=== PATIENT | female | born 1990 | race Caucasian/White ===

== ENCOUNTER → 2019-05-12 | Outpatient (CLI) | payer OTHER ==
[~2019-05-12] MED LIST: ACHYD1T PO; DCS100C PO; DOCU100C37 PO; HOLD METFORMIN - RECEIVED CONTRAST 20 ML VIAL IV SCH; IBP800T PO; IBUP-1780 PO; IOHEXOL 350 MG/ML 100 ML (OMNIPAQUE 350) VIAL IV ONE; LEVO175T5 PO; NS 100 ML (IVPB) BAG IV ONE; OXYC-465 PO; PREN-115 PO
--- NOTE | 2019-05-12 08:22 | Diagnostic Imaging Report ---
PROCEDURE: CT chest with and without contrast. TECHNIQUE: Multiple contiguous axial images were obtained through the chest before and after administration of intravenous contrast. Auto Exposure Controls were utilized during the CT exam to meet ALARA standards for radiation dose reduction. DATE: May 12, 2019. COMPARISON: None. INDICATION: 28-year-old female, shortness of breath, cough. Hemoptysis. FINDINGS: There is very mild dependent atelectasis in the right and left lower lobes. There is no identified pulmonary nodule There is no lung mass. There is no additional focal airspace consolidation. The central airways are patent. There is no pneumothorax. There is no pleural effusion. 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 The heart is not enlarged. There is no identified pericardial effusion. There is nondiagnostic assessment for pulmonary embolus given timing of contrast bolus. There is somewhat prominent soft tissue attenuation in the anterior mediastinum which appears predominantly triangular. This potentially may reflect prominent thymus. There is no identified abnormally enlarged mediastinal, hilar, or axillary lymph node which meets CT size criteria for adenopathy. The imaged portions of the upper abdomen are unremarkable in appearance. There are nondisplaced subacute to chronic appearing deformities of the anterior aspects of the right sixth, seventh, and eighth ribs. IMPRESSION: CT CHEST. 1. No identified acute cardiopulmonary abnormality. 2. Nondisplaced subacute to chronic appearing fractures of the right anterior sixth, seventh, and eighth ribs. Dictated by: Dictated on workstation # [id number]
== END ==
LOC: RAD 07:32
PROVIDERS: ATTEND Surgery
DX: R06.02 Shortness of breath (principal); R04.2 Hemoptysis; R05 Cough
CPT/HCPCS: 71270

== ENCOUNTER 2019-05-30 13:03 | Emergency (ER) | payer OTHER ==
[~2019-05-30] VITALS: Ht 165 cm; Wt 60.7 kg
[~2019-05-30 13:03] MED LIST changes: -HOLD METFORMIN - RECEIVED CONTRAST 20 ML VIAL IV SCH; -IOHEXOL 350 MG/ML 100 ML (OMNIPAQUE 350) VIAL IV ONE; -NS 100 ML (IVPB) BAG IV ONE
--- NOTE | 2019-05-30 13:44 | ED Respiratory ---
General Chief Complaint: Cough/Cold/Flu Symptoms Stated Complaint: COUGH Nursing Triage Note: ARRIVED VIA AMB TO TRIAGE. STATES SHE HAS HAD A COUGH X5 MONTHS. HAS BEEN TO HER PRIMARY CARE MULTIPLE TIMES AND [facility] AND TREATED WITH MULTIPLE MEDICATIONS BUT NOT BETTER. STATES SHE WANTS ANSWERS AND ADMISSION IF SHE NEEDS IT. Source: patient Exam Limitations: no limitations (RADHA GASTELUM MEDICAL STUDENT) History of Present Illness Date Seen by Provider: May 30, 2019 Time Seen by Provider: 13:20 Initial Comments Pt is a 29 yo female who ambulates to the ED for complaints of a chronic cough that started 5 months ago. It has worsened over the last week due to what she believes is either allergies or a cold. She also complains of nasal congestion and an inability to sleep because of the cough. States she only slept 45 minutes last night. She gets a MARX from excessive coughing and sometimes experiences post-tussive emesis. She is primarily here for help with uncovering the etiology of the cough. She has been diagnosed with pneumonia and received antibiotics several times. She received a CT chest here on 05/12/19 which was negative except for some subacute to chronic appearing fractures of the right anterior sixth, seventh, and eighth ribs. She also received a referral to Dr. Cavazos to investigate reflux as the possible cause, but pt states he did not perform an EGD because he did not believe her cough was consistent with what would be expected if it were caused by reflux. She has been told a next step could potentially be workup by a associate engineer, but does not currently have a referral. She states she is upset enough with the length of this cough and lack of answers that she would be okay with being admitted to the hospital. Timing/Duration: constant, other (5 months) Severity: moderate Prior Episodes/Possible Cause: chronic episodes, unknown cause Modifying Factors: Improves With Albuterol Nebulizer Associated Symptoms: No dizziness, No fever/chills; headache, nasal congestion; No sore throat, No wheezing (RADHA GASTELUM MEDICAL STUDENT) Timing/Duration: getting worse, other (5 months) Severity: moderate Associated Symptoms: cough, nasal congestion; No sore throat (JESSIKA OWENS MD) Allergies and Home Medications Allergies Coded Allergies: No Known Drug Allergies (Unverified , 10/02/12) Home Medications Docusate Sodium 100 Mg Capsule, 100 MG PO BID Prescribed by: ROJAS HAMEED on 04/15/15758 Ibuprofen 800 Mg Tablet, 800 MG PO Q6H Prescribed by: ROJAS HAMEED on 04/15/15758 Levothyroxine Sodium 175 Mcg Tablet, 175 MCG PO DAILY, (Reported) Oxycodone HCl/Acetaminophen 1 Each Tablet, 1-2 TAB PO Q4H PRN for PAIN Prescribed by: ROJAS HAMEED on 04/15/15758 Vit #108/Iron/Fa 1 Each Tablet, 1 EACH PO DAILY, (Reported) Patient Home Medication List Home Medication List Reviewed: Yes (RADHA GASTELUM STUDENT) Home Medication List Reviewed: Yes (JESSIKA OWENS MD) Review of Systems Review of Systems Constitutional: No chills, No fever EENTM: nose congestion; No ear pain, No throat swelling Respiratory: cough, phlegm Cardiovascular: No chest pain, No palpitations Gastrointestinal: No abdominal pain, No diarrhea, No nausea; vomiting (post- tussive) Genitourinary: no symptoms reported : No Musculoskeletal: no symptoms reported Skin: no symptoms reported Psychiatric/Neurological: No Symptoms Reported Hematologic/Lymphatic: No Symptoms Reported Immunological/Allergic: no symptoms reported (RADHA GASTELUM) EENTM: nose congestion Cardiovascular: No edema; other (persistent tachycardia) (JESSIKA OWENS MD) All Other Systems Reviewed Negative Unless Noted: Yes (JESSIKA OWENS MD) Past Izttzyk-Kqeqqd-Qssjek Hx Past Med/Social Hx: Reviewed Nursing Past Med/Soc Hx (RADHA GASTELUM) Patient Social History Alcohol Use: Denies Use Recreational Drug Use: No Smoking Status: Never a Smoker Recent Foreign Travel: No Contact w/Someone Who Travel: No Recent Infectious Disease Expo: No Physical Abuse: No Sexual Abuse: No (RADHA GASTELUM STUDENT) Immunizations Up To Date Tetanus Booster (TDap): Unknown PED Vaccines UTD: Yes (RADHA GASTELUM) Past Medical History Surgeries: Yes (wisdom teeth extraction) Thyroidectomy Respiratory: No Cardiac: No Neurological: No Reproductive Disorders: No Female Reproductive Disorders: Denies Sexually Transmitted Disease: No HIV/AIDS: No Gastrointestinal: No Musculoskeletal: No Endocrine: Yes (graves disease, removed in 2013) Hypothyroidsim Cancer: No Psychosocial: No Integumentary: No Blood Disorders: No (RADHA GASTELUM MEDICAL STUDENT) Family Medical History Reviewed Nursing Family Hx (RADHA GASTELUM STUDENT) Reviewed Nursing Family Hx (JESSIKA OWENS MD) Physical Exam Vital Signs - First Documented 05/30/19 13:04 Temp 36.7 Pulse 140 Resp 16 B/P (MAP) 144/85 (104) Pulse Ox 98 O2 Delivery Room Air (JESSIKA OWENS MD) Capillary Refill : Less Than 3 Seconds (RADHA GASTELUM MEDICAL STUDENT) Height: 5'5.00" Weight: 138lbs. oz. 62.948910td; 22.00 BMI Method: General Appearance: no apparent distress HEENT: PERRL/EOMI, TMs normal, pharynx normal Neck: non-tender, full range of motion, supple, normal inspection Respiratory: chest non-tender, no respiratory distress, no accessory muscle use, rhonchi (all lung perez) Cardiovascular: no edema, no gallop, no murmur, tachycardia (140s) Gastrointestinal: normal bowel sounds, non tender, soft Extremities: normal range of motion, non-tender, no pedal edema, no calf tenderness Neurologic/Psychiatric: alert, oriented x 3 Skin: normal color, warm/dry Lymphatic: no adenopathy (RADHA GASTELUM MEDICAL STUDENT) Neck: full range of motion, supple, lymphadenopathy (R), lymphadenopathy (L) Respiratory: lungs clear, no respiratory distress Cardiovascular: no murmur, tachycardia (140s) Gastrointestinal: non tender, soft Neurologic/Psychiatric: alert, oriented x 3 Skin: normal color, warm/dry (JESSIKA OWENS MD) Progress/Results/Core Measures Suspected Sepsis Recent Fever Within 48 Hours: No Infection Criteria Present: Suspected New Infection New/Unexplained Altered Menta: No Sepsis Screen: No Definite Risk SIRS Temperature: Pulse: 140 Respiratory Rate: 16 Blood Pressure 144 /85 Mean: 104 (RADHA GASTELUM MEDICAL STUDENT) Results/Orders Lab Results Laboratory Tests Test 05/30/19 14:36 Range/Units White Blood Count 9.2 4.3-11.0 10^3/uL Red Blood Count 5.35 4.35-5.85 10^6/uL Hemoglobin 14.2 11.5-16.0 G/DL Hematocrit 42 35-52 % Mean Corpuscular Volume 78 L 80-99 FL Mean Corpuscular Hemoglobin 27 25-34 PG Mean Corpuscular Hemoglobin Concent 34 32-36 G/DL Red Cell Distribution Width 13.1 10.0-14.5 % Platelet Count 241 130-400 10^3/uL Mean Platelet Volume 9.1 7.4-10.4 FL Neutrophils (%) (Auto) 78 H 42-75 % Lymphocytes (%) (Auto) 6 L 12-44 % Monocytes (%) (Auto) 7 0-12 % Eosinophils (%) (Auto) 8 0-10 % Basophils (%) (Auto) 0 0-10 % Neutrophils # (Auto) 7.3 1.8-7.8 X 10^3 Lymphocytes # (Auto) 0.6 L 1.0-4.0 X 10^3 Monocytes # (Auto) 0.7 0.0-1.0 X 10^3 Eosinophils # (Auto) 0.7 H 0.0-0.3 10^3/uL Basophils # (Auto) 0.0 0.0-0.1 10^3/uL Neutrophils % (Manual) 80 % Lymphocytes % (Manual) 5 % Monocytes % (Manual) 5 % Eosinophils % (Manual) 10 % Clumped Platelets OCCASIONAL Microcytosis MODERATE Sodium Level 139 135-145 MMOL/L Potassium Level 3.5 L 3.6-5.0 MMOL/L Chloride Level 105 98-107 MMOL/L Carbon Dioxide Level 22 21-32 MMOL/L Anion Gap 12 5-14 MMOL/L Blood Urea Nitrogen 5 L 7-18 MG/DL Creatinine 0.72 0.60-1.30 MG/DL Estimat Glomerular Filtration Rate > 60 BUN/Creatinine Ratio 7 Glucose Level 92 70-105 MG/DL Calcium Level 8.8 8.5-10.1 MG/DL Corrected Calcium 8.7 8.5-10.1 MG/DL Magnesium Level 1.6 1.6-2.4 MG/DL Total Bilirubin 0.4 0.1-1.0 MG/DL Aspartate Amino Transf (AST/SGOT) 12 5-34 U/L Alanine Aminotransferase (ALT/SGPT) 15 0-55 U/L Alkaline Phosphatase 108 40-136 U/L C-Reactive Protein High Sensitivity 0.17 0.00-0.50 MG/DL Total Protein 7.3 6.4-8.2 GM/DL Albumin 4.1 3.2-4.5 GM/DL Thyroid Stimulating Hormone (TSH) 0.00 L 0.35-4.94 UIU/ML Free Thyroxine 1.63 H 0.70-1.48 NG/DL (JESSIKA OWENS MD) Micro Results Microbiology 05/30/19 Influenza Types A,B Antigen (ROXI) - Final, Complete (JESSIKA OWENS MD) My Orders Orders - JESSIKA OWENS MD Cbc With Automated Diff (05/30/19 14:34) Comprehensive Metabolic Panel (05/30/19 14:34) Hs C Reactive Protein (05/30/19 14:34) Magnesium (05/30/19 14:34) Thyroid Stimulating Hormone (05/30/19 14:34) Influenza A And B Antigens (05/30/19 14:34) Ed Iv/Invasive Line Start (05/30/19 14:34) Lactated Ringers (Lr 1000 Ml Iv Solution (05/30/19 14:34) Free T4 (Free Thyroxine) (05/30/19 14:34) Manual Differential (05/30/19 14:36) Dexamethasone Injection (Decadron Inject (05/30/19 15:30) Triiodothryonine T3 Free (05/30/19 15:55) Metoprolol Tartrate (Ir) Tab (Lopressor (05/30/19 16:15) (JESSIKA OWENS MD) Medications Given in ED Current Medications Medications Dose Ordered Sig/Guido Route Start Time Stop Time Status Last Admin Dose Admin Dexamethasone Sodium Phosphate 10 mg ONCE ONCE IV 05/30/19 15:30 05/30/19 15:31 DC 05/30/19 15:35 10 MG Lactated Ringer's 1,000 ml @ 0 mls/hr Q0M ONCE IV 05/30/19 14:34 05/30/19 14:37 DC 05/30/19 14:50 0 MLS/HR Metoprolol Tartrate 25 mg ONCE ONCE PO 05/30/19 16:15 05/30/19 16:16 DC 05/30/19 16:16 25 MG (JESSIKA OWENS MD) Vital Signs/I&O 05/30/19 05/30/19 13:04 14:36 Temp 36.7 36.7 Pulse 140 Resp 16 B/P (MAP) 144/85 (104) Pulse Ox 98 O2 Delivery Room Air (JESSIKA OWENS MD) Vital Signs/I&O Capillary Refill : Less Than 3 Seconds (RADHA GASTELUM MEDICAL STUDENT) Blood Pressure Mean: 104 Progress Note : Progress Note I have seen and evaluated the patient and agree with above except as indicated. I directed the plan of care. Patient is here with chronic cough over the last 5 months as well as tachycardia. These symptoms of runny nose this week. Denies current fever. She has been seen by her provider's office for this and they are currently in the process of workup for endocrinology due to hyperthyroidism status post complete thyroidectomy 5 years ago. Patient is not currently on thyroid replacement. She does take Singulair as well as control. She states that her heart rate is was quite high. Denies other symptoms. Evaluation as above. Plan for IV, labs, LR 1 L bolus and records review. CT scan from 05/17/19 reviewed. 1615: Findings noted and reviewed. I did discuss the case with Dr. Art. She will see her in office next week for recheck. She does have thyroid scan set up for Sunday. Patient has history with Dr. Boogie and will make appointment with him. 1630: I did discuss the case with Dr. Mcclendon, pulmonology. He will see the patient in the next one to 2 weeks for recheck as well and initial evaluation. We did initiate metoprolol 25 mg by mouth and I will continue that twice a day with [address] Art will reevaluate and adjust prescription as necessary. Discharged home with return precautions. Patient verbalize understanding of instructions and agreement with plan. (JESSIKA OWENS MD) Departure Impression Primary Impression: Hyperthyroidism Additional Impressions: Chronic cough Viral upper respiratory infection Disposition: HOME, SELF-CARE Condition: Stable Departure-Patient Inst. Decision time for Depature: 16:37 (JESSIKA OWENS MD) Referrals: LIBBY ART MD (PCP) Primary Care Physician LEO BECERRIL (Family) Primary Care Physician YARI MCCLENDON DO Patient Instructions: Hyperthyroidism (Overactive Thyroid) (DC), Cough, Adult (DC), Viral Upper Respiratory Infection, Adult (DC) Add. Discharge Instructions: All discharge instructions reviewed with patient and/or family. Voiced understanding. Drink plenty of fluids. Take medications as directed. Follow-up with Dr. Art on 06/04/19 at 3 PM. You will get a call that says to be there at 245 but 3 PM is okay. Call Dr. Mcclendon's office on Sunday morning for appointment within the next one to 2 weeks. Let the shipping coordinator know that your case was discussed with him and he wanted to see you and follow-up. Keep appointment for the ultrasound as scheduled. Return for worsening symptoms, weakness, breathing problems, extreme fatigue, chest pain or other concerns as needed. Scripts Metoprolol Tartrate (Metoprolol Tartrate) 25 Mg Tablet 25 MG PO BID, #30 TAB Prov: JESSIKA OWENS MD 05/30/19 Copy Copies To 1: YARI MCCLENDON DO Copies To 2: LIBBY ART MD [facility] May 30, 2019 13:44 JESSIKA OWENS MD May 30, 2019 16:36
[2019-05-30] MEDS ORDERED: LACTATED RINGERS 1,000 ML IV ONE (14:34)
[2019-05-30 14:47] LABS: BASOPHILS % (AUTO) 0 % (0-10); EOSINOPHILS # (AUTO) 0.7 10^3/uL (0.0-0.3); EOSINOPHILS % (AUTO) 8 % (0-10); HEMATOCRIT 42 % (35-52); HEMOGLOBIN 14.2 G/DL (11.5-16.0); LYMPHOCYTES # (AUTO) 0.6 X 10^3 (1.0-4.0); LYMPHOCYTES % (AUTO) 6 % (12-44); MEAN CORPUSCULAR HEMOGLOBIN 27 PG (25-34); MEAN CORPUSCULAR HGB CONC 34 G/DL (32-36); MEAN CORPUSCULAR VOLUME 78 FL (80-99); MEAN PLATELET VOLUME 9.1 FL (7.4-10.4); MONOCYTES # (AUTO) 0.7 X 10^3 (0.0-1.0); MONOCYTES % (AUTO) 7 % (0-12); NEUTROPHILS # (AUTO) 7.3 X 10^3 (1.8-7.8); NEUTROPHILS % (AUTO) 78 % (42-75); PLATELET COUNT 241 10^3/uL (130-400); RED CELL DISTRIBUTION WIDTH 13.1 % (10.0-14.5); WHITE BLOOD COUNT 9.2 10^3/uL (4.3-11.0)
[2019-05-30 15:06] LABS: ALANINE AMINOTRANSFERASE 15 U/L (0-55); ALBUMIN 4.1 GM/DL (3.2-4.5); ALKALINE PHOSPHATASE 108 U/L (40-136); BILIRUBIN,TOTAL 0.4 MG/DL (0.1-1.0); BUN/CREATININE RATIO 7; CALCIUM 8.8 MG/DL (8.5-10.1); CARBON DIOXIDE 22 MMOL/L (21-32); CHLORIDE 105 MMOL/L (98-107); CREATININE SERUM 0.72 MG/DL (0.60-1.30); GFR ESTIMATED > 60; GLUCOSE 92 MG/DL (70-105); MAGNESIUM 1.6 MG/DL (1.6-2.4); POTASSIUM 3.5 MMOL/L (3.6-5.0); SODIUM 139 MMOL/L (135-145); TOTAL PROTEIN 7.3 GM/DL (6.4-8.2)
[2019-05-30 15:17] LABS: EOSINOPHILS % (MANUAL) 10 %; LYMPHOCYTES % (MANUAL) 5 %; MONOCYTES % (MANUAL) 5 %; NEUTROPHILS % (MANUAL) 80 %; PLATELET CLUMPS OCCASIONAL
[2019-05-30 15:18] LABS: MICROCYTOSIS MODERATE
[2019-05-30 15:27] LABS: FREE T4 (FREE THYROXINE) 1.63 NG/DL (0.70-1.48)
[2019-05-30] MEDS ORDERED: DEXAMETHASONE 10 MG/ML (DECADRON) 1 ML VIAL IV ONE (15:30)
[2019-05-30] MEDS ORDERED: meTOprolol TARTRATE 25 MG (LOPRESSOR) TABLET PO ONE (16:15)
[2019-05-30] MEDS ORDERED: METO-333 PO (16:42)
[2019-05-30 16:49] VITALS: BP 119/78
== END 2019-05-30 16:57 | disposition home or self-care (01) ==
LOC: EDUNIT# 13:03 → ER 13:04
DX: J06.9 Acute upper respiratory infection, unspecified (principal); E05.90 Thyrotoxicosis, unspecified without thyrotoxic crisis or storm; E03.9 Hypothyroidism, unspecified
CPT/HCPCS: 36415; 80053; 83735; 84439; 84443; 84481; 85007; 85027; 86141; 87804

== ENCOUNTER → 2019-06-02 | Outpatient (CLI) | payer OTHER ==
[~2019-06-02] MED LIST changes: +METO-333 PO
--- NOTE | 2019-06-02 10:02 | Diagnostic Imaging Report ---
PROCEDURE: US Thyroid. TECHNIQUE: Multiple real-time grayscale images were obtained of the thyroid in various projections. INDICATION: Hyperthyroidism. Patient's prior history of partial thyroidectomy. Correlation made with prior thyroid ultrasound from 05/29/2013. Patient appears to have thyroid tissue bilaterally. There appear to be 2 nodules or masses on the right, largest in the upper pole measuring approximately 3.4 x 2.0 x 1.5 cm. Solid appearing nodular echogenicity in the lower pole right lobe measures 2.5 x 1.3 x 1.5 cm. Thyroid tissue on the left measures 4.7 x 2.0 cm. This heterogeneous but no discrete mass is seen. IMPRESSION: There appear to be 2 solid thyroid nodules in the right lobe, largest upper pole. Fine-needle aspiration could be performed. Dictated by: Dictated on workstation # [id number]
== END ==
LOC: RAD 07:54
PROVIDERS: ATTEND Nurse Practitioner Family
DX: E05.90 Thyrotoxicosis, unspecified without thyrotoxic crisis or storm (principal); E04.1 Nontoxic single thyroid nodule
CPT/HCPCS: 76536

== ENCOUNTER → 2019-06-05 | Outpatient (CLI) | payer OTHER ==
[~2019-06-05] MED LIST changes: +LIDOCAINE 1% INJ 20 ML 20 ML VIAL INJ ONE
--- NOTE | 2019-06-05 11:47 | Diagnostic Imaging Report ---
INDICATION: Right-sided thyroid nodules. Patient presents for ultrasound-guided fine needle aspiration. DETAILS OF PROCEDURE: Patient was brought to the procedure room and placed on table in the supine position. Ultrasound imaging of the right neck was performed to evaluate appropriate entry site. Right neck was then prepped and draped in usual sterile fashion. A small amount of 1% lidocaine was utilized for local anesthesia. Superior solid nodule measures 3.2 x 2.0 x 1.8 cm and inferior nodule measures 2.2 x 1.2 x 1.4 cm. A total of four passes were made into superior nodule and four passes were made into the more inferior nodule in the right neck utilizing 25-gauge needles and fine-needle aspiration technique. Hemostasis was obtained using manual compression. Patient tolerated procedure well. IMPRESSION: Successful ultrasound-guided fine-needle aspiration of both the superior and inferior solid nodules in the region of the right thyroid bed. Pathology results are currently pending. Dictated by: Dictated on workstation # [id number]
== END ==
LOC: RAD 10:17
PROVIDERS: ATTEND Family Medicine
DX: E04.2 Nontoxic multinodular goiter (principal)

== ENCOUNTER → 2019-06-10 | Outpatient (CLI) | payer OTHER ==
[~2019-06-10] MED LIST changes: -LIDOCAINE 1% INJ 20 ML 20 ML VIAL INJ ONE
--- NOTE | 2019-06-11 11:17 | Diagnostic Imaging Report ---
EXAMINATION: I-123 thyroid scan and uptake. INDICATION: Abnormal thyroid labs. TECHNIQUE: This study was performed following administration of 202 uCi of I-123. FINDINGS: The previous I-123 thyroid scan of 06/04/2013 noted that the thyroid gland was enlarged and that the 24-hour uptake value was 89.6% (normal 15-30% uptake value). The appearance of the thyroid and the elevated uptake did indicate Graves' disease. According to the patient, she subsequently underwent a total thyroidectomy. The thyroid ultrasound exam performed on 06/02/2019, however, noted that both lobes of the thyroid appear to be present and that there were two solid-appearing nodules in the inferior pole of the right lobe. On this exam, the 24-hour uptake is again elevated at 86.14%. There also appears to be uptake in both thyroid beds. There is slightly diminished uptake in the region of the solid nodule in the right lobe of the thyroid. Reportedly, this lesion was biopsied with ultrasound guidance on 06/05/2019. The results of the biopsy are not known to me. IMPRESSION: 1. The thyroid uptake value is elevated, and there does appear to be thyroid tissue in each side of the thyroid bed. This does suggest recurrent Graves' disease. 2. There is slightly increased uptake in the region of the solid nodule in the right lobe of the thyroid. Correlation with the patient's biopsy results would be recommended. Dictated by: Dictated on workstation # [id number]
== END ==
LOC: CARD 10:41
PROVIDERS: ATTEND Nurse Practitioner Family
DX: E04.1 Nontoxic single thyroid nodule (principal)
CPT/HCPCS: 78014

== ENCOUNTER 2020-01-16 16:24 | Emergency (ER) | payer SELFPAY ==
[~2020-01-16] VITALS: Ht 165 cm; Wt 63.0 kg
[~2020-01-16 16:24] MED LIST changes: -OXYC-465 PO; +OXYC-556 PO
[2020-01-16] MEDS ORDERED: RT-ALBUTEROL INHALER HFA (VENTOLIN HFA) 18 GM IH ONE (16:31)
[2020-01-16] MEDS ORDERED: BENZONATATE 100 MG (TESSALON) CAPSULE PO SCH (16:45)
[2020-01-16] MEDS ORDERED: HYDROcodone/APAP 5 MG/325 MG (LORTAB) TAB PO ONE (16:45)
--- NOTE | 2020-01-16 16:46 | ED General ---
General Chief Complaint: Cough/Cold/Flu Symptoms Stated Complaint: COUGH/SOA/HEADACHE Source of Information: Patient Exam Limitations: No Limitations History of Present Illness Date Seen by Provider: Jan 16, 2020 Time Seen by Provider: 16:44 Initial Comments To ER with cough shortness of breath and headache that began this afternoon at about 1 PM. She has had a chronic cough for 1 year and has seen Pulmonology 2 at the [facility]. She has an albuterol nebulizer at home but denies much improvement. Her [facility] doctor has called in prednisone today but she hasn't had a chance to start it yet. Timing/Duration: 1-2 Days Severity: Moderate Associated Systoms: Denies Symptoms Allergies and Home Medications Allergies Coded Allergies: No Known Drug Allergies (Unverified , 10/02/12) Home Medications Docusate Sodium 100 Mg Capsule, 100 MG PO BID Prescribed by: ROJAS HAMEED on 04/15/15 0759 Ibuprofen 800 Mg Tablet, 800 MG PO Q6H Prescribed by: ROJAS HAMEED on 04/15/15 0759 Levothyroxine Sodium 175 Mcg Tablet, 175 MCG PO DAILY, (Reported) Metoprolol Tartrate 25 Mg Tablet, 25 MG PO BID Prescribed by: JESSIKA OWENS on 05/30/19 1642 Oxycodone HCl/Acetaminophen 1 Each Tablet, 1-2 TAB PO Q4H PRN for PAIN Prescribed by: ROJAS HAMEED on 04/15/15 0759 Vit #108/Iron/Fa 1 Each Tablet, 1 EACH PO DAILY, (Reported) Patient Home Medication List Home Medication List Reviewed: Yes Review of Systems Review of Systems Constitutional: see HPI; No chills, No fever EENTM: No throat pain Respiratory: no symptoms reported Cardiovascular: no symptoms reported Genitourinary: no symptoms reported Musculoskeletal: no symptoms reported Skin: no symptoms reported Psychiatric/Neurological: No Symptoms Reported Hematologic/Lymphatic: No Symptoms Reported Immunological/Allergic: no symptoms reported Past Rpezmwz-Iaozzh-Rsbyze Hx Patient Social History Recent Foreign Travel: No Contact w/Someone Who Travel: No Immunizations Up To Date Tetanus Booster (TDap): Unknown PED Vaccines UTD: Yes Past Medical History Surgeries: Yes (wisdom teeth extraction) Thyroidectomy Respiratory: No Cardiac: No Neurological: No Reproductive Disorders: No Female Reproductive Disorders: Denies Sexually Transmitted Disease: No HIV/AIDS: No Gastrointestinal: No Musculoskeletal: No Endocrine: Yes (graves disease, removed in 2014) Hypothyroidsim Cancer: No Psychosocial: No Integumentary: No Blood Disorders: No Physical Exam Vital Signs Vital Signs - First Documented 01/16/20 16:30 Temp 37.0 Pulse 136 Resp 24 B/P (MAP) 129/99 (109) Pulse Ox 94 O2 Delivery Room Air Capillary Refill : Height, Weight, BMI Height: 5'5.00" Weight: 138lbs. oz. 62.273578nw; 22.00 BMI Method: General Appearance: No Apparent Distress, WD/WN, Other (Speaks in full sentences does have nasal congestion heart rate of 120 but she states she's on medication for a high heart rate all the time. She has a cough which has been nonstop since noon. She does have a persistent cough here. Good lung sounds.) Eyes: Bilateral Eye Normal Inspection, Bilateral Eye PERRL HEENT: PERRL/EOMI, TMs Normal Neck: Full Range of Motion, Normal Inspection Respiratory: No Accessory Muscle Use, No Respiratory Distress Cardiovascular: Regular Rate, Rhythm, No Murmur, Normal Peripheral Pulses Gastrointestinal: Normal Bowel Sounds, Non Tender, Soft Extremity: Normal Capillary Refill, Normal Inspection Neurologic/Psychiatric: Alert, Oriented x3 Skin: Normal Color, Warm/Dry Progress/Results/Core Measures Suspected Sepsis SIRS Temperature: Pulse: Respiratory Rate: Laboratory Tests 01/16/20 16:40: White Blood Count 4.6 Blood Pressure / Mean: Laboratory Tests 01/16/20 16:40: Creatinine 0.81, Platelet Count 230 Results/Orders Lab Results Laboratory Tests Test 01/16/20 16:40 Range/Units White Blood Count 4.6 4.3-11.0 10^3/uL Red Blood Count 5.42 H 3.80-5.11 10^6/uL Hemoglobin 14.4 11.5-16.0 g/dL Hematocrit 42 35-52 % Mean Corpuscular Volume 78 L 80-99 fL Mean Corpuscular Hemoglobin 27 25-34 pg Mean Corpuscular Hemoglobin Concent 34 32-36 g/dL Red Cell Distribution Width 12.3 10.0-14.5 % Platelet Count 230 130-400 10^3/uL Mean Platelet Volume 9.0 9.0-12.2 fL Immature Granulocyte % (Auto) 0 % Neutrophils (%) (Auto) 52 42-75 % Lymphocytes (%) (Auto) 26 12-44 % Monocytes (%) (Auto) 10 0-12 % Eosinophils (%) (Auto) 11 H 0-10 % Basophils (%) (Auto) 1 0-10 % Neutrophils # (Auto) 2.4 1.8-7.8 10^3/uL Lymphocytes # (Auto) 1.2 1.0-4.0 10^3/uL Monocytes # (Auto) 0.5 0.0-1.0 10^3/uL Eosinophils # (Auto) 0.5 H 0.0-0.3 10^3/uL Basophils # (Auto) 0.0 0.0-0.1 10^3/uL Immature Granulocyte # (Auto) 0.0 0.0-0.1 10^3/uL D-Dimer < 0.27 0.00-0.49 UG/ML Sodium Level 137 135-145 MMOL/L Potassium Level 3.4 L 3.6-5.0 MMOL/L Chloride Level 102 98-107 MMOL/L Carbon Dioxide Level 22 21-32 MMOL/L Anion Gap 13 5-14 MMOL/L Blood Urea Nitrogen 9 7-18 MG/DL Creatinine 0.81 0.60-1.30 MG/DL Estimat Glomerular Filtration Rate > 60 BUN/Creatinine Ratio 11 Glucose Level 100 70-105 MG/DL Calcium Level 8.9 8.5-10.1 MG/DL My Orders Orders - MONO BHATT APRN Albuterol Inhaler (Ventolin Hfa) (01/16/20 16:31) Ed Iv/Invasive Line Start (01/16/20 16:34) Cbc With Automated Diff (01/16/20 16:34) Basic Metabolic Panel (01/16/20 16:34) Covid 19 Inhouse Test (01/16/20 16:34) Albuterol Inhaler (Ventolin Hfa) (01/16/20 18:00) Dexamethasone Injection (Decadron Inje (01/16/20 16:45) Benzonatate Capsule (Tessalon Perles) (01/16/20 16:45) Hydrocodone/Apap 5/325 Tablet (Lortab 5 (01/16/20 16:45) Chest 1 View, Ap/Pa Only (01/16/20 16:43) Fibrin Degradation Products (01/16/20 16:47) Medications Given in ED Current Medications Medications Dose Ordered Sig/Guido Route Start Time Stop Time Status Last Admin Dose Admin Acetaminophen/ Hydrocodone Bitart 1 tab ONCE ONCE PO 01/16/20 16:45 01/16/20 16:46 DC 01/16/20 16:51 1 TAB Dexamethasone Sodium Phosphate 10 mg ONCE ONCE IV 01/16/20 16:45 01/16/20 16:46 DC 01/16/20 16:52 10 MG Vital Signs/I&O 01/16/20 16:30 Temp 37.0 Pulse 136 Resp 24 B/P (MAP) 129/99 (109) Pulse Ox 94 O2 Delivery Room Air Capillary Refill : Departure Communication (Admissions) 1722-cough has subsided. Impression Primary Impression: exacerbation of chronic cough Disposition: HOME, SELF-CARE Condition: Stable Departure-Patient Inst. Decision time for Depature: 17:22 Referrals: LIBBY SALGUERO MD (PCP) Primary Care Physician LEO BECERRIL (Family) Primary Care Physician Patient Instructions: Cough, Adult (DC) Add. Discharge Instructions: 1. Cough medication as directed. Return to ER for any concerns. Go ahead and start her steroids, return to ER for any worsening. All discharge instructions reviewed with patient and/or family. Voiced understanding. MONO BHATT [employer]AL[employer]CH[employer]IC Jan 16, 2020 16:46
[2020-01-16 16:49] LABS: BASOPHILS % (AUTO) 1 % (0-10); EOSINOPHILS # (AUTO) 0.5 10^3/uL (0.0-0.3); EOSINOPHILS % (AUTO) 11 % (0-10); HEMATOCRIT 42 % (35-52); HEMOGLOBIN 14.4 g/dL (11.5-16.0); LYMPHOCYTES # (AUTO) 1.2 10^3/uL (1.0-4.0); LYMPHOCYTES % (AUTO) 26 % (12-44); MEAN CORPUSCULAR HEMOGLOBIN 27 pg (25-34); MEAN CORPUSCULAR HGB CONC 34 g/dL (32-36); MEAN CORPUSCULAR VOLUME 78 fL (80-99); MONOCYTES # (AUTO) 0.5 10^3/uL (0.0-1.0); MONOCYTES % (AUTO) 10 % (0-12); NEUTROPHILS # (AUTO) 2.4 10^3/uL (1.8-7.8); NEUTROPHILS % (AUTO) 52 % (42-75); PLATELET COUNT 230 10^3/uL (130-400); WHITE BLOOD COUNT 4.6 10^3/uL (4.3-11.0)
[2020-01-16 16:54] LABS: CHLORIDE 102 MMOL/L (98-107); POTASSIUM 3.4 MMOL/L (3.6-5.0)
[2020-01-16 16:55] LABS: SODIUM 137 MMOL/L (135-145)
[2020-01-16 16:56] LABS: CALCIUM 8.9 MG/DL (8.5-10.1); GLUCOSE 100 MG/DL (70-105)
[2020-01-16 16:58] LABS: CARBON DIOXIDE 22 MMOL/L (21-32)
[2020-01-16 17:00] LABS: CREATININE SERUM 0.81 MG/DL (0.60-1.30); GFR ESTIMATED > 60
[2020-01-16 17:01] LABS: BUN/CREATININE RATIO 11
--- NOTE | 2020-01-16 17:19 | Diagnostic Imaging Report ---
Clinical indication: Patient with cough and chest pain. Exam: Portable chest x-ray upright view. Comparisons: None. Findings: Lungs/pleura: Lungs are clear. There is no pneumothorax. There is no pleural effusion. Mediastinum: Unremarkable. Pulmonary vasculature: Unremarkable. Heart: Unremarkable. Bones/extrathoracic soft tissue: Unremarkable. Impression: There is no radiographic evidence of acute cardiopulmonary process. Dictated by: Dictated on workstation # [id number]
[2020-01-16] MEDS ORDERED: ACET1TAB43 PO (17:25)
[2020-01-16 17:45] VITALS: BP 129/99
[2020-01-16] MEDS ORDERED: RT-ALBUTEROL INHALER HFA (VENTOLIN HFA) 18 GM IH SCH (18:00)
== END 2020-01-16 17:47 | disposition home or self-care (01) ==
LOC: EDUNIT# 16:24 → ER 16:26
DX: R05 Cough (principal); E03.9 Hypothyroidism, unspecified; Z20.828 Contact with and (suspected) exposure to other viral communicable diseases; Z79.890 Hormone replacement therapy
CPT/HCPCS: 71045; 80048; 85025; 85379; 99284; U0002; 36415; 87635